=== PATIENT | female | born 1985 | race Two or more races ===

== ENCOUNTER 2016-07-23 13:13 | Emergency (ER) | payer OTHER ==
[2016-07-23 13:22] VITALS: BP 114/63; PULSE 105; TEMP 99.2; BMI 25.9
--- NOTE | 2016-07-23 14:47 | PDOC ---
History of Present Illness - General Chief Complaint: Cold Symptoms Stated Complaint: FLU LIKE SYM Time Seen by Provider: 07/23/16 14:14 History Source: Patient Exam Limitations: No Limitations - History of Present Illness Initial Comments: 07/23/16 14:42 My chief complaint: Cough, fever, nasal congestion, sore throat, nausea, vomiting this am History of present illness: Patient is a 31-year-old female approximately 10 weeks here today complaining of generalized body aches, fever that started yesterday, and nasal congestion that started yesterday and sore throat 4 days, patient denies having influenza vaccine. Patient is 4 para 1, 1, 1 miscarriage [address] patient of Dr. Nice. Patient also reports nausea and vomiting this morning. He denies any vaginal bleeding or any urinary symptoms. Patient was seen yesterday at Dr. Nice office was not tested for the flu but was given Tamiflu which she started today. Patient denies any shortness of breath or difficulty swallowing. 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 Patient has had no recent travel. Timing/Duration: changing over time Severity: moderate Associated Symptoms: reports: cough, fever/chills, loss of appetite, nausea/ vomiting (this morning ), other (sore throat, nasal congestion ) Past History - Past Medical History Allergies/Adverse Reactions: Allergies Allergy/AdvReac Type Severity Reaction Status Date / Time No Known Allergies Allergy Verified 07/23/16 13:22 Home Medications: Ambulatory Orders Ibuprofen [Motrin -] 600 mg PO ONCE 12/04/15 Acetaminophen [Tylenol] 650 mg PO Q4H PRN #20 tablet 06/15/16 Famotidine [Pepcid] 20 mg PO BID PRN #20 tablet 06/15/16 Metoclopramide HCl [Reglan] 10 mg PO Q6H PRN #15 tablet 06/15/16 Vit Calc,Iron,Folic [ Vitamins] 1 each PO DAILY #30 tablet Anemia: Yes Asthma: No Cancer: No Cardiac Disorders: No Diabetes: No HTN: No Seizures: No Thyroid Disease: No - Reproductive History (#): 1 Para: 1 Cervical CA: No Dysfunctional Uterine Bleeding: No Ectopic : No Endometrial CA: No Polycystic Ovaries: No Therapeutic (s) & number: No Tubal Ligation: No - Immunization History Immunization Up to Date: Yes - Psycho/Social/Smoking Cessation Hx Anxiety: No Suicidal Ideation: No Smoking History: Never smoked Have you smoked in the past 12 months: No Hx Alcohol Use: No Drug/Substance Use Hx: No Substance Use Type: None Hx Substance Use Treatment: No Review of Systems - Review of Systems Able to Perform ROS?: Yes Constitutional: Yes: Chills, Fever HEENTM: Yes: Nose Congestion, Throat Pain Respiratory: Yes: Cough. No: Shortness of Breath, SOB with Exertion, SOB at Rest, Stridor, Wheezing, Productive cough Cardiac (ROS): No: Symptoms Reported ABD/GI: Yes: Nausea (this am), Vomiting (this morning ) Musculoskeletal: Yes: Other (generalized bodyaches) Neurological: No: Symptoms reported *Physical Exam - Vital Signs Last Vital Signs Temp Pulse Resp BP Pulse Ox 99.2 F 105 H 20 114/63 100 07/23/16 13:20 07/23/16 13:20 07/23/16 13:20 07/23/16 13:20 07/23/16 13:20 - Physical Exam General Appearance: Yes: Appropriately Dressed HEENT: positive: TMs Normal, Pharyngeal Erythema, Nasal Congestion, Rhinorrhea ( clear ). negative: Tonsillar Exudate, Tonsillar Erythema Neck: positive: Lymphadenopathy (R), Lymphadenopathy (L) Respiratory/Chest: positive: Lungs Clear, Normal Breath Sounds. negative: Chest Tender, Respiratory Distress Cardiovascular: positive: Regular Rhythm, Regular Rate, S1, S2 Gastrointestinal/Abdominal: positive: Normal Bowel Sounds, Soft. negative: Tender, Organomegaly, Distended, Guarding, Rebound, Tenderness Integumentary: positive: Normal Color Neurologic: positive: Alert, Responsive Medical Decision Making - Medical Decision Making 07/23/16 14:45 Patient is a 31-year-old female approximately 10 weeks here today complaining of generalized body aches, fever that started yesterday, and nasal congestion that started yesterday and sore throat 4 days, patient denies having influenza vaccine. Patient is 4 para 1, 1, 1 miscarriage a patient of Dr. Nice. Patient also reports nausea and vomiting this morning. He denies any vaginal bleeding or any urinary symptoms. Patient was seen yesterday at Dr. Nice office was not tested for the flu but was given Tamiflu which she started today. Patient denies any shortness of breath or difficulty swallowing. 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 Patient has had no recent travel. 07/23/16 14:47 r//o influenza and strep throat PLAN: throat C & S rapid negative influenza A & B rapid + for influenza A may take claritin from over the counter 07/23/16 15:43 *DC/Admit/Observation/Transfer Diagnosis at time of Disposition: Influenza A - Discharge Dispostion Disposition: HOME Condition at time of disposition: Stable - Patient Instructions Additional Instructions: Take acetaminophen as needed as directed by client strategist for fever or body aches May take Claritin [id number] as directed for nasal congestion continue TAMIFLU as previously ordered Drink a lot a fluids and rest Follow up with your primary care provider within the next few days Your influenza test was positive for influenza a and your strep throat culture was negative for strep throat Patient voiced understanding of discharge instructions and all questions were answered
== END 2016-07-23 15:58 | disposition home or self-care (01) ==
LOC: JERFT 13:13
DX: O98.511 Other viral diseases complicating pregnancy, first trimester (principal); B33.8 Other specified viral diseases; J09.X2 Influenza due to identified novel influenza A virus with other respiratory manifestations; Z3A.10 10 weeks gestation of pregnancy
CPT/HCPCS: 87070; 87430; 87804; 99281-25

== ENCOUNTER 2017-02-12 08:40 | Inpatient (IN) | payer OTHER ==
[2017-02-12 09:51] VITALS: BMI 31.4
[2017-02-12] MEDS ORDERED: BUTORPHANOL TARTRATE 1 MG/ML VIAL IVPUSH ONE (10:53)
[2017-02-12] MEDS ORDERED: PROMETHAZINE HCL 25 MG/1 ML VIAL IVPUSH ONE (10:53)
[2017-02-12 11:08] LABS: BASOPHIL 0.4 % (0-2.0); EOSINOPHIL 0.7 % (0-4.5); MCH 30.7 pg (25.7-33.7); MCHC 33.7 g/dl (32.0-36.0); MEAN PLT VOLUME 12.9 fl (7.5-11.1); NEUTROPHILS 73.5 % (42.8-82.8); PLATELET COUNT 136 K/MM3 (134-434); RDW 13.8 % (11.6-15.6); WHITE BLOOD COUNT 10.2 K/mm3 (4.0-10.0)
--- NOTE | 2017-02-12 11:16 | HP ---
Past Medical History - Primary Care Physician PCP:: Glynn Chung - Admission Chief Complaint: 39,5 weeks, labor, previous c/s . desires History of Present Illness: 31 yo f edc by sono 02/09/17, by date 02/11/19 40.1 week with one previous c/s . LST c/s c/o contractions, no rom, no bleeding, cx 3 cm 80 vx -2 mi, fhr cat 1, irregular contractions , wants , risks discussed aware risks of rupture uterus and complications History Source: Patient Limitations to Obtaining History: No Limitations - Past Medical History ...: 4 ...Para: 1 ...Term: 1 ...: 0 ...Spon : 1 ...Induced : 1 ...Multiple Gestation: 0 ...LMP: 05/07/16 ... Weeks Gestation by Dates: 40.1 ...EDC by Dates: 02/11/17 ...EDC by Sono: 02/09/17 - Past Surgical History Past Surgical History: Yes: Hx Myomectomy: No Hx Transabdominal Cerclage: No - Smoking History Smoking history: Never smoked Have you smoked in the past 12 months: No - Alcohol/Substance Use Hx Alcohol Use: No - Social History Usual Living Arrangement: Yes: With Spouse History of Recent Travel: No Home Medications - Allergies Allergies/Adverse Reactions: Allergies Allergy/AdvReac Type Severity Reaction Status Date / Time No Known Allergies Allergy Verified 02/12/17 09:52 - Home Medications Home Medications: Ambulatory Orders Vit Calc,Iron,Folic [ Vitamins] 1 each PO DAILY #30 tablet Folic Acid 1 mg PO DAILY 02/12/17 Review of Systems - Review of Systems Constitutional: reports: No Symptoms Eyes: reports: No Symptoms HENT: reports: No Symptoms Neck: reports: No Symptoms Cardiovascular: reports: No Symptoms Respiratory: reports: No Symptoms Gastrointestinal: reports: No Symptoms Genitourinary: reports: No Symptoms Breasts: reports: No Symptoms Reported Musculoskeletal: reports: No Symptoms Integumentary: reports: No Symptoms Neurological: reports: No Symptoms Endocrine: reports: No Symptoms Hematology/Lymphatic: reports: No Symptoms Psychiatric: reports: No Symptoms Physical Exam - Maternity Vital Signs: Vital Signs Temperature 98.0 F 02/12/17 11:00 Pulse Rate 88 02/12/17 11:00 Respiratory Rate 20 02/12/17 11:00 Blood Pressure 108/61 02/12/17 11:00 O2 Sat by Pulse Oximetry (%) Constitutional: Yes: Well Nourished, No Distress, Calm Eyes: Yes: WNL, Conjunctiva Clear, EOM Intact HENT: Yes: WNL, Atraumatic, Normocephalic Neck: Yes: WNL, Supple, Trachea Midline Cardiovascular: Yes: WNL, Regular Rate and Rhythm Breast(s): Yes: WNL - Abdominal Exam/OB Fundal Height: 40 Number of Fetuses: Single Presentation: Vertex Contractions: Yes Regularity: Irregular Intensity: Mod/Strong Monitor Mode: External Heart Rate Location: [facility] Category: I Accelerations: Uniform Decelerations: None - Vaginal Exam/OB Vaginal Bleediing: No Speculum Exam: No Dilatation (cm): 2 to 3 Effacement (%): 80 Amniotic Membrane Status: Bulging Presentation: Vertex/Position Station: -2 - Physical Exam Musculoskeletal: Yes: WNL Extremities: Yes: WNL Edema: Yes Edema: LLE: Trace, RLE: Trace Deep Tendon Reflex Grade: Normal +2 Psychiatric: Yes: WNL Hemorrhage Risk Assessment - Risk Factors Medium Risk Factors: Yes: Prior , uterine surgery,or multiple laparotomies Risk Score: 1 Risk Level: Medium Risk Problem List - Problems (1) Post term over 40 weeks Code(s): O48.0 - POST-TERM (2) Previous delivery affecting Code(s): O34.219 - MATERNAL CARE FOR UNSP TYPE SCAR FROM PREVIOUS DEL (3) Labor established Code(s): [id number] - Assessment/Plan admit for , risks explained, fhr tracing cat 1, observantion
[2017-02-12 11:22] LABS: INR 0.94 (0.82-1.09); PROTHROMBIN TIME (PATIENT) 10.3 SEC (9.98-11.88)
[2017-02-12 11:25] LABS: ACTIVATED PTT 28.4 SECONDS (26.9-34.4)
[2017-02-12 11:48] LABS: ANION GAP 9 (8-16); CALCIUM 8.5 mg/dL (8.5-10.1); CO2 22 mmol/L (21-32); CREATININE 0.5 mg/dL (0.55-1.02); GLUCOSE,RANDOM 76 mg/dL (74-106)
[2017-02-12] MEDS: ELECTROLYTE-148 SOLN 1,000 ML IV SCH ×2 (12:30→18:00)
[2017-02-12 13:18] LABS: HIV 1 & 2 AB NEGATIVE; HIV 1 AGp24 NEGATIVE
[2017-02-12] MEDS ORDERED: FENTANYL/BUPIVACAINE/NS/PF - PCEA - 50 ML DISP.SYRIN EP SCH (16:00)
--- NOTE | 2017-02-12 16:22 | PN ---
Progress Note (short form) - Note Progress Note: cx 4 cm 100 vx -2 mi, fhr cat 1, contraction regular Problem List - Problems (1) Post term over 40 weeks Code(s): O48.0 - POST-TERM (2) Previous delivery affecting Code(s): O34.219 - MATERNAL CARE FOR UNSP TYPE SCAR FROM PREVIOUS DEL (3) Labor established Code(s): [id number] -
[2017-02-12] MEDS ORDERED: ALBUTEROL SO4 6.7 GM HFA INHALER IH PRN (20:33)
[2017-02-12] MEDS: D5W-LR W/ 20 UNITS OXYTOCIN 1,000 ML IV SCH (21:50)
[2017-02-12] MEDS: oxyCODONE HCL 5 MG TABLET PO PRN (22:00)
[2017-02-12] MEDS: ACETAMINOPHEN 325 MG TABLET (FP) PO PRN (22:00)
[2017-02-12] MEDS ORDERED: BENZOCAINE 28 GM HEMORRHOIDAL OINTMENT TP PRN (22:06)
[2017-02-12] MEDS ORDERED: WITCH HAZEL 50% (TUCKS) 40 PAD/JAR PAD TP PRN (22:06)
[2017-02-12] MEDS ORDERED: BENZOCAINE 20% 57 GM BOTTLE TP PRN (22:06)
[2017-02-12] MEDS ORDERED: BISACODYL 10 MG SUPP.RECT RC PRN (22:06)
[2017-02-12] MEDS ORDERED: METHYLERGONOVINE MALEATE 0.2 MG/1 ML AMP IM PRN (22:06)
[2017-02-13] MEDS: D5W-LR W/ 20 UNITS OXYTOCIN 1,000 ML IV SCH (01:09)
[2017-02-13] MEDS: IBUPROFEN 600 MG TABLET (FP) PO PRN ×4 (01:34→21:04)
[2017-02-13] MEDS: ACETAMINOPHEN 325 MG TABLET (FP) PO PRN ×3 (01:35→21:03)
[2017-02-13 07:09] LABS: BASOPHIL 0.4 % (0-2.0); MCH 30.2 pg (25.7-33.7); MCHC 32.9 g/dl (32.0-36.0); MEAN CELL VOLUME 91.6 fl (80-96); MEAN PLT VOLUME 12.1 fl (7.5-11.1); NEUTROPHILS 84.1 % (42.8-82.8); PLATELET COUNT 124 K/MM3 (134-434); RDW 14.2 % (11.6-15.6); WHITE BLOOD COUNT 18.7 K/mm3 (4.0-10.0)
[2017-02-13 07:24] LABS: VENOUS PH 7.38 (7.32-7.42)
[2017-02-13 07:25] LABS: VENOUS BLOOD GAS HCO3 20.1 meq/L (19-25)
[2017-02-13] MEDS: FERROUS SO4 325 MG TABLET (FP) PO SCH ×2 (08:30→17:00)
--- NOTE | 2017-02-13 09:04 | PN ---
Progress Note (short form) - Note Progress Note: ppd 1 doing well, no c/o , no excess vaginal bleeding CBC, BMP 02/13/17 06:45 02/12/17 10:20 Last Vital Signs Temp Pulse Resp BP Pulse Ox 98.8 F 86 18 105/58 100 02/13/17 06:00 02/13/17 06:00 02/13/17 06:00 02/13/17 06:00 02/12/17 23:30 abdomen soft, uterus firm lochia mild no calf tenderness plan ambulate, observation Problem List - Problems (1) Post term over 40 weeks Code(s): O48.0 - POST-TERM (2) Previous delivery affecting Code(s): O34.219 - MATERNAL CARE FOR UNSP TYPE SCAR FROM PREVIOUS DEL (3) Labor established Code(s): [id number] -
[2017-02-13] MEDS: PRENATAL VITAMINS W/ FOLIC ACID TABLET (FP) PO SCH (09:42)
[2017-02-13] MEDS ORDERED: DIPHTH,PERTUSS(ACELL),TET 0.5 ML DISP.SYRIN IM ONE (10:00)
[2017-02-13] MEDS: oxyCODONE HCL 5 MG TABLET PO PRN ×2 (14:14→21:04)
[2017-02-13] MEDS ORDERED: SENNOSIDES/DOCUSATE COMBO (SENNA PLUS) TABLET (UD) PO PRN (22:00)
[2017-02-14] MEDS: IBUPROFEN 600 MG TABLET (FP) PO PRN ×2 (02:23→08:01)
[2017-02-14] MEDS: ACETAMINOPHEN 325 MG TABLET (FP) PO PRN (02:24)
--- NOTE | 2017-02-14 07:37 | DS ---
Physical Exam-MANAGER WATER Vital Signs: Vital Signs Temperature 98.6 F 02/13/17 22:00 Pulse Rate 93 H 02/13/17 22:00 Respiratory Rate 18 02/13/17 22:00 Blood Pressure 101/69 02/13/17 22:00 O2 Sat by Pulse Oximetry (%) 100 02/12/17 23:30 Constitutional: Yes: Well Nourished Eyes: Yes: WNL HENT: Yes: WNL Neck: Yes: WNL Cardiovascular: Yes: WNL Respiratory: Yes: WNL Gastrointestinal: Yes: WNL ...Rectal Exam: Yes: WNL Renal/: Yes: WNL Pelvis: Yes: WNL External Genitalia: Yes: Normal Vaginal Exam: Yes: Normal ....Post : Yes: Uterus firm, Uterus non-tender Breast(s): Yes: WNL Musculoskeletal: Yes: WNL Extremities: Yes: WNL Edema: No Integumentary: Yes: WNL Neurological: Yes: WNL ...Motor Strength: WNL Psychiatric: Yes: WNL Labs: CBC, BMP 02/13/17 06:45 02/12/17 10:20 Delivery - Delivery Type of Anesthesia: Epidural Episiotomy/Laceration: Midline EBL (cc): 300 Delivery, Single - Stages of Labor Date 1st Stage Initiatied: 02/12/17 Time 1st Stage Initiated: 06:30 Date 2nd Stage Initiated: 02/12/17 Time 2nd Stage Initiated: 21:15 Date of Delivery: 02/12/17 Time of Delivery: 21:48 Time Placenta Delivered: 21:50 - Condition of [place]acc[place] Manager/Traffic Investigator Present: No Gender: Male Weight: 7 lb 10 oz Position: Left, OA Total Hours ROM (Hrs/Mins): 1 hour 55 minutes - 1 Minute Total Score: 9 5 Minutes Total Score: 9 - [place] Feeding Plan Initial Plan: Exclusive throughout hospitalization Discharge Summary Reason For Visit: Full term , labor Current Active Problems Labor established (Acute) Post term over 40 weeks (Acute) Previous delivery affecting (Acute) Procedures: Principal: Normal vaginal delivery after c/section Hospital Course: unremarkable Condition: Good - Instructions Diet, Activity, Other Instructions: Physical activity Resume your normal everyday activity as tolerated no heavy lifting or exercise until seen by your surgeon. You may walk unlimited jose of and climb stairs. You may resume driving the car when you feel safe and comfortable behind the wheel. No sexual activity as instructed. Wound care If you have a bandage, leave it on, and keep dry for 48-72 hours. After that time discard the outer bandage. If they are tapes on the skin under the out of bandage leave them in place. They will peel off in the next 7 to 10 days. Do Not Peel them off. You may shower the day after surgery. If there are tapes present on the skin, you may shower over them. Diet There are no dietary restrictions. Eat healthy, high-fiber foods. Drink 6 to 8 glasses of liquid each day. This will assist in keeping your bowels are regular. Pain management You may take Tylenol or acetaminophen or Ibuprofen (for example, Motrin, Advil etc.) from my pain prescription medication is ordered should be taken as prescribed for moderate to severe pain. Call MD for any of the following: Severe pain not relieved by medication Fever of 101 or higher Excessive bleeding or drainage on dressing Inability to urinate Referrals: Glynn Chung MD [Staff Physician] - Disposition: HOME - Home Medications Comprehensive Discharge Medication List: Ambulatory Orders Vit Calc,Iron,Folic [ Vitamins] 1 each PO DAILY #30 tablet Folic Acid 1 mg PO DAILY 02/12/17
[2017-02-14] MEDS: FERROUS SO4 325 MG TABLET (FP) PO SCH (07:58)
[2017-02-14 08:59] LABS: BASOPHIL 0.5 % (0-2.0); EOSINOPHIL 1.6 % (0-4.5); MCH 29.8 pg (25.7-33.7); MCHC 32.3 g/dl (32.0-36.0); MEAN CELL VOLUME 92.3 fl (80-96); MEAN PLT VOLUME 12.1 fl (7.5-11.1); NEUTROPHILS 69.7 % (42.8-82.8); PLATELET COUNT 101 K/MM3 (134-434); RDW 14.3 % (11.6-15.6); WHITE BLOOD COUNT 12.4 K/mm3 (4.0-10.0)
[2017-02-14] MEDS: PRENATAL VITAMINS W/ FOLIC ACID TABLET (FP) PO SCH (09:18)
[2017-02-14 10:43] VITALS: BP 90/57; PULSE 69; TEMP 97.8
== END 2017-02-14 14:00 | disposition home or self-care (01) | DRG 560 ==
LOC: JDEL 08:40 → JLDR 09:00 → J3W 02-13 12:38
PROVIDERS: ADMIT Obstetrics & Gynecology; ATTEND Obstetrics & Gynecology
PROC: 10E0XZZ Delivery of Products of Conception, External Approach (ICD-10-PCS; principal; 2017-02-12)
PROC: 4A1HXCZ Monitoring of Products of Conception, Cardiac Rate, External Approach (ICD-10-PCS; 2017-02-12)
PROC: 3E0S3CZ (ICD-10-PCS; 2017-02-12)
DX: O34.211 Maternal care for low transverse scar from previous cesarean delivery (principal); O48.0 Post-term pregnancy; Z3A.40 40 weeks gestation of pregnancy; Z37.0 Single live birth
CPT/HCPCS: 36415; 59409; 80048; 82803; 85025; 85610; 85730; 86593; 86850; 86900; 86901; 87389; 90715

== ENCOUNTER 2021-01-23 09:14 | Emergency (ER) | payer OTHER ==
[2021-01-23 09:20] VITALS: BMI 30.9
[2021-01-23] MEDS ORDERED: SODIUM CHLORIDE 0.9% 500 ML INFUS.BAG IV ONE (10:01)
[2021-01-23] MEDS ORDERED: ACETAMINOPHEN 1000 MG/100 ML VIAL (NON FORMULARY) IVPB ONE (10:01)
[2021-01-23] MEDS ORDERED: ACETAMINOPHEN INJECTION 100 ML IVPB ONE (10:10)
[2021-01-23 10:42] LABS: EOS % 0.9 % (0-4.5); HEMOGLOBIN 12.7 GM/dL (10.7-15.3); LYMPH % 26.8 % (8-40); MCH 30.2 pg (25.7-33.7); MCHC 34.4 g/dl (32.0-36.0); MEAN CELL VOLUME 87.7 fl (80-96); MEAN PLT VOLUME 10.2 fl (7.5-11.1); NEUT % 63.3 % (42.8-82.8); PLATELET COUNT 234 10^3/uL (134-434); RBC 4.22 M/mm3 (3.60-5.2); RDW 12.6 % (11.6-15.6); WHITE BLOOD COUNT 8.7 K/mm3 (4.0-10.0)
[2021-01-23 10:45] LABS: URINE APPEARANCE CLEAR; URINE BILIRUBIN NEGATIVE (NEGATIVE); URINE COLOR YELLOW; URINE GLUCOSE (UA) NEGATIVE (NEGATIVE); URINE KETONE NEGATIVE (NEGATIVE); URINE LEUK ESTERASE NEGATIVE (NEGATIVE); URINE NITRITE NEGATIVE (NEGATIVE); URINE PROTEIN NEGATIVE (NEGATIVE); URINE UROBILINOGEN 0.2 mg/dL (0.2-1.0)
[2021-01-23 10:47] LABS: HCG,QUALITATIVE URINE Negative
[2021-01-23 11:10] LABS: CALCIUM 8.5 mg/dL (8.5-10.1)
[2021-01-23 11:13] LABS: CREATININE 0.7 mg/dL (0.55-1.3)
[2021-01-23 11:15] LABS: BILIRUBIN,TOTAL 0.4 mg/dL (0.2-1); TOT PROT 7.2 g/dl (6.4-8.2)
[2021-01-23] MEDS ORDERED: KETOROLAC TROMETHAMINE 30 MG/1 ML VIAL IVPUSH ONE (12:27)
[2021-01-23] MEDS ORDERED: KETOROLAC TROMETHAMINE 30 MG/1 ML VIAL ONE (12:42)
[2021-01-23 14:07] VITALS: BP 110/68; PULSE 88; TEMP 98
== END 2021-01-23 14:08 | disposition home or self-care (01) ==
LOC: JER 09:14
PROC: 3E033NZ Introduction of Analgesics, Hypnotics, Sedatives into Peripheral Vein, Percutaneous Approach (ICD-10-PCS; principal; 2021-01-23)
PROC: 3E033GC Introduction of Other Therapeutic Substance into Peripheral Vein, Percutaneous Approach (ICD-10-PCS; 2021-01-23)
DX: R10.9 Unspecified abdominal pain (principal)
CPT/HCPCS: 36415; 76830-TC; 80053; 81003; 84703; 85025; 87086; 96374; 96375; 99284-25; J0131

== ENCOUNTER 2022-07-28 22:16 | Emergency (ER) | payer OTHER ==
[2022-07-28 22:26] VITALS: BP 118/75; PULSE 62; RESP 16; TEMP 98.1; BMI 30.9
[2022-07-28] MEDS ORDERED: SUCRALFATE 1 GM TABLET (FP) PO ONE (23:22)
[2022-07-28] MEDS ORDERED: MAG HYDROX/AL HYDROX/SIMETH -MYLANTA- ORAL SUSPENSION PO ONE (23:22)
[2022-07-28 23:33] LABS: PH,URINE 5.5 (5.0-8.0); URINE APPEARANCE CLEAR; URINE BILIRUBIN NEGATIVE (NEGATIVE); URINE COLOR YELLOW; URINE GLUCOSE (UA) NEGATIVE (NEGATIVE); URINE KETONE NEGATIVE (NEGATIVE); URINE LEUK ESTERASE NEGATIVE (NEGATIVE); URINE NITRITE NEGATIVE (NEGATIVE); URINE PROTEIN NEGATIVE (NEGATIVE); URINE UROBILINOGEN 0.2 mg/dL (0.2-1.0)
[2022-07-28 23:36] LABS: BASO % 0.7 % (0-2.0); EOS % 1.2 % (0-4.5); HEMATOCRIT 37.5 % (32.4-45.2); HEMOGLOBIN 12.6 GM/dL (10.7-15.3); LYMPH % 28.4 % (8-40); MCH 30.3 pg (25.7-33.7); MCHC 33.6 g/dl (32.0-36.0); MEAN CELL VOLUME 90.2 fl (80-96); MEAN PLT VOLUME 11.1 fl (7.5-11.1); MONO % 7.4 % (3.8-10.2); NEUT % 62.3 % (42.8-82.8); PLATELET COUNT 211 10^3/uL (134-434); RBC 4.16 M/mm3 (3.60-5.2); RDW 12.6 % (11.6-15.6); WHITE BLOOD COUNT 9.4 K/mm3 (4.0-10.0)
[2022-07-29 00:03] LABS: BLOOD UREA NITROGEN 12.5 mg/dL (7-18); CALCIUM 8.9 mg/dL (8.5-10.1)
[2022-07-29 00:06] LABS: CREATININE 0.7 mg/dL (0.55-1.3)
[2022-07-29 00:07] LABS: BILIRUBIN,TOTAL 0.3 mg/dL (0.2-1)
[2022-07-29] MEDS ORDERED: SUCRALFATE 1 GM TABLET (FP) ONE (00:10)
[2022-07-29] MEDS ORDERED: MAG HYDROX/AL HYDROX/SIMETH 30 ML UNIT-DOSE CUP ONE (00:10)
[2022-07-29] MEDS ORDERED: DOXYCYCLINE HYCLATE 100 MG CAPSULE PO ONE ×2 (03:13→03:26)
[2022-07-29] MEDS ORDERED: cefTRIAXone SODIUM 1 GM VIAL ONE (03:25)
[2022-07-29] MEDS ORDERED: LIDOCAINE HCL 1%, 10 MG/ML (20ML VIAL) ONE (03:29)
[2022-07-29] MEDS ORDERED: LIDOCAINE HCL 1%, 10 MG/ML (50 mL VIAL) SQ ONE (03:29)
== END 2022-07-29 03:50 | disposition home or self-care (01) ==
LOC: JER 22:16
DX: R10.13 Epigastric pain (principal); R10.30 Lower abdominal pain, unspecified
CPT/HCPCS: 36415; 76705-TC; 76830-TC; 80053; 81003; 83690; 84703; 85025; 87070; 87086; 87491; 87591; 87651; 87661; 99284-25

== ENCOUNTER 2022-09-10 13:02 | Emergency (ER) | payer OTHER ==
[2022-09-10 13:40] VITALS: BP 114/48; PULSE 57; RESP 16; TEMP 98.2; BMI 29.2
[2022-09-10] MEDS ORDERED: ACETAMINOPHEN 1000 MG/100 ML BAG IVPB ONE (14:17)
[2022-09-10] MEDS ORDERED: SODIUM CHLORIDE 1,000 ML IV STA (14:17)
[2022-09-10] MEDS ORDERED: ACETAMINOPHEN INJECTION 100 ML IVPB ONE (14:38)
[2022-09-10 15:25] LABS: BASO % 0.7 % (0-2.0); EOS % 0.8 % (0-4.5); HEMATOCRIT 35.7 % (32.4-45.2); HEMOGLOBIN 12.1 GM/dL (10.7-15.3); LYMPH % 26.5 % (8-40); MCH 29.8 pg (25.7-33.7); MCHC 33.9 g/dl (32.0-36.0); MEAN CELL VOLUME 87.7 fl (80-96); MEAN PLT VOLUME 10.7 fl (7.5-11.1); MONO % 9.5 % (3.8-10.2); NEUT % 62.5 % (42.8-82.8); PLATELET COUNT 215 10^3/uL (134-434); RBC 4.07 M/mm3 (3.60-5.2); RDW 12.6 % (11.6-15.6); WHITE BLOOD COUNT 8.7 K/mm3 (4.0-10.0)
[2022-09-10 15:27] LABS: URINE APPEARANCE CLOUDY; URINE BILIRUBIN NEGATIVE (NEGATIVE); URINE COLOR YELLOW; URINE GLUCOSE (UA) NEGATIVE (NEGATIVE); URINE KETONE NEGATIVE (NEGATIVE); URINE LEUK ESTERASE NEGATIVE (NEGATIVE); URINE NITRITE NEGATIVE (NEGATIVE); URINE PROTEIN NEGATIVE (NEGATIVE)
[2022-09-10 15:34] LABS: HCG,QUALITATIVE URINE Positive
[2022-09-10 15:37] LABS: INR 1.11 (0.83-1.09); PROTHROMBIN TIME (PATIENT) 12.9 SEC (9.7-13.0)
[2022-09-10 15:53] LABS: CALCIUM 8.9 mg/dL (8.5-10.1)
[2022-09-10 15:54] LABS: ALBUMIN 3.7 g/dl (3.4-5.0); BLOOD UREA NITROGEN 10.7 mg/dL (7-18)
[2022-09-10 15:57] LABS: CREATININE 0.7 mg/dL (0.55-1.3)
[2022-09-10 15:58] LABS: BILIRUBIN,TOTAL 0.5 mg/dL (0.2-1); TOT PROT 6.7 g/dl (6.4-8.2)
== END 2022-09-10 19:41 | disposition home or self-care (01) ==
LOC: JER 13:02
PROC: 3E033NZ Introduction of Analgesics, Hypnotics, Sedatives into Peripheral Vein, Percutaneous Approach (ICD-10-PCS; principal; 2022-09-10)
PROC: 3E0337Z Introduction of Electrolytic and Water Balance Substance into Peripheral Vein, Percutaneous Approach (ICD-10-PCS; 2022-09-10)
DX: O20.9 Hemorrhage in early pregnancy, unspecified (principal); Z3A.01 Less than 8 weeks gestation of pregnancy
CPT/HCPCS: 36415; 76830-TC; 80053; 81003; 82010; 84702; 84703; 85025; 85610; 85730; 86850; 86900; 86901; 87086; 99284-25

== ENCOUNTER 2022-09-24 21:11 | Emergency (ER) | payer OTHER ==
[2022-09-24 21:20] VITALS: BP 103/68; PULSE 63; RESP 18; TEMP 98.1; BMI 29.5
[2022-09-24 21:59] LABS: BASO % 0.4 % (0-2.0); EOS % 0.6 % (0-4.5); HEMATOCRIT 36.6 % (32.4-45.2); HEMOGLOBIN 12.2 GM/dL (10.7-15.3); LYMPH % 24.2 % (8-40); MCH 29.3 pg (25.7-33.7); MCHC 33.3 g/dl (32.0-36.0); MEAN PLT VOLUME 10.5 fl (7.5-11.1); MONO % 6.4 % (3.8-10.2); NEUT % 68.4 % (42.8-82.8); PLATELET COUNT 227 10^3/uL (134-434); RBC 4.16 M/mm3 (3.60-5.2); RDW 12.6 % (11.6-15.6); WHITE BLOOD COUNT 11.7 K/mm3 (4.0-10.0)
[2022-09-24 22:03] LABS: EPI CELLS 11 /uL (0-25.1); HYALINE CASTS 0 /uL (0-3.1); PH,URINE 6.5 (5.0-8.0); URINE APPEARANCE CLEAR; URINE BACTERIA 83 /uL (0-1359); URINE BILIRUBIN NEGATIVE (NEGATIVE); URINE COLOR YELLOW; URINE GLUCOSE (UA) NEGATIVE (NEGATIVE); URINE KETONE NEGATIVE (NEGATIVE); URINE LEUK ESTERASE NEGATIVE (NEGATIVE); URINE NITRITE NEGATIVE (NEGATIVE); URINE PROTEIN NEGATIVE (NEGATIVE); URINE RBC 873 /uL (0-23.9); URINE UROBILINOGEN 0.2 mg/dL (0.2-1.0); URINE WBC 4 /uL (0-25.8)
[2022-09-24 22:05] LABS: INR 1.04 (0.83-1.09); PROTHROMBIN TIME (PATIENT) 12.1 SEC (9.7-13.0)
[2022-09-24 22:08] LABS: ACTIVATED PTT 36.2 SECONDS (25.2-36.5)
[2022-09-24] MEDS ORDERED: ACETAMINOPHEN 500 MG TABLET (FP) PO ONE (22:14)
[2022-09-24 22:18] LABS: CALCIUM 8.8 mg/dL (8.5-10.1)
[2022-09-24] MEDS ORDERED: ACETAMINOPHEN 325 MG TABLET (FP) ONE (22:18)
[2022-09-24 22:19] LABS: ALBUMIN 3.7 g/dl (3.4-5.0); BLOOD UREA NITROGEN 8.6 mg/dL (7-18)
[2022-09-24 22:22] LABS: CREATININE 0.6 mg/dL (0.55-1.3)
[2022-09-24 22:23] LABS: BILIRUBIN,TOTAL 0.3 mg/dL (0.2-1)
== END 2022-09-25 02:03 | disposition home or self-care (01) ==
LOC: JER 21:11
DX: O26.851 Spotting complicating pregnancy, first trimester (principal); R10.30 Lower abdominal pain, unspecified; M54.50 Low back pain, unspecified; Z3A.08 8 weeks gestation of pregnancy
CPT/HCPCS: 36415; 76817-TC; 80053; 81003; 84702; 85025; 85610; 85730; 86850; 86900; 86901; 87086; 99284-25

== ENCOUNTER 2022-10-14 04:53 | Emergency (ER) | payer OTHER ==
[2022-10-14 05:04] VITALS: RESP 18; BMI 29.5
[2022-10-14] MEDS ORDERED: ACETAMINOPHEN 1000 MG/100 ML BAG IVPB ONE (05:46)
[2022-10-14] MEDS ORDERED: SODIUM CHLORIDE 0.9% 500 ML INFUS.BAG IV ONE (06:03)
[2022-10-14] MEDS ORDERED: ACETAMINOPHEN INJECTION 100 ML IVPB ONE (06:16)
[2022-10-14 06:50] LABS: CALCIUM 8.7 mg/dL (8.5-10.1)
[2022-10-14 06:51] LABS: ALBUMIN 3.8 g/dl (3.4-5.0); BLOOD UREA NITROGEN 15.3 mg/dL (7-18)
[2022-10-14 06:54] LABS: CREATININE 0.5 mg/dL (0.55-1.3)
[2022-10-14 06:56] LABS: BILIRUBIN,TOTAL 0.4 mg/dL (0.2-1)
[2022-10-14 07:01] LABS: BASO % 0.6 % (0-2.0); EOS % 0.8 % (0-4.5); HEMATOCRIT 33.9 % (32.4-45.2); HEMOGLOBIN 11.6 GM/dL (10.7-15.3); LYMPH % 23.6 % (8-40); MCH 30.3 pg (25.7-33.7); MCHC 34.3 g/dl (32.0-36.0); MEAN CELL VOLUME 88.5 fl (80-96); MEAN PLT VOLUME 11.3 fl (7.5-11.1); MONO % 6.5 % (3.8-10.2); NEUT % 68.5 % (42.8-82.8); PLATELET COUNT 184 10^3/uL (134-434); RBC 3.83 M/mm3 (3.60-5.2); RDW 12.9 % (11.6-15.6)
[2022-10-14 08:08] LABS: EPI CELLS 11 /uL (0-25.1); HYALINE CASTS 0 /uL (0-3.1); PH,URINE 5.5 (5.0-8.0); URINE APPEARANCE CLEAR; URINE BACTERIA 30 /uL (0-1359); URINE BILIRUBIN NEGATIVE (NEGATIVE); URINE COLOR YELLOW; URINE GLUCOSE (UA) NEGATIVE (NEGATIVE); URINE KETONE 1+ (NEGATIVE); URINE LEUK ESTERASE NEGATIVE (NEGATIVE); URINE NITRITE NEGATIVE (NEGATIVE); URINE PROTEIN NEGATIVE (NEGATIVE); URINE RBC 48 /uL (0-23.9); URINE UROBILINOGEN 0.2 mg/dL (0.2-1.0); URINE WBC 5 /uL (0-25.8)
[2022-10-14 09:10] VITALS: BP 104/70; PULSE 70; TEMP 98
== END 2022-10-14 10:45 | disposition home or self-care (01) ==
LOC: JER 04:53
PROC: 3E033NZ Introduction of Analgesics, Hypnotics, Sedatives into Peripheral Vein, Percutaneous Approach (ICD-10-PCS; principal; 2022-10-14)
DX: O20.0 Threatened abortion (principal); O26.851 Spotting complicating pregnancy, first trimester; O26.891 Other specified pregnancy related conditions, first trimester; R10.2 Pelvic and perineal pain; Z3A.11 11 weeks gestation of pregnancy
CPT/HCPCS: 36415; 76817-TC; 80053; 81003; 84702; 85025; 87086; 99285-25